=== PATIENT | male | born 1975 ===

== ENCOUNTER 2021-01-07 10:24 | Outpatient (CLI) | payer OTHER | END 2021-01-07 10:37 | disposition home or self-care (01) | LOC: RAD 10:24 | PROVIDERS: ATTEND Internal Medicine Nephrology | DX: I10 Essential (primary) hypertension (principal); J45.998 Other asthma ==

== ENCOUNTER 2021-10-22 11:42 | Outpatient (CLI) | payer OTHER | END 2021-10-22 11:46 | disposition home or self-care (01) | LOC: RAD 11:42 | PROVIDERS: ATTEND Specialist | DX: J45.998 Other asthma (principal) ==

== ENCOUNTER → 2022-10-25 | Outpatient (CLI) | payer OTHER | END | disposition home or self-care (01) | LOC: RAD 10:19 | PROVIDERS: ATTEND Specialist | DX: J45.991 Cough variant asthma (principal) ==